=== PATIENT | female | born 1975 | race Caucasian/White ===

== ENCOUNTER 2019-02-12 10:58 | Observation (INO) | payer BC ==
--- NOTE | 2019-02-08 11:36 | Diagnostic Imaging Report ---
Chest, 2 views, 02/08/2019. History: Preop, hysterectomy. Comparison: None available. Findings: The cardiomediastinal silhouette and pulmonary vasculature are within normal limits. The lungs are clear without evidence of consolidation or pleural effusion. There are no acute osseous or soft tissue abnormalities. Impression: No acute cardiopulmonary abnormality. Signed by: John Felipe on 02/08/2019 11:33 AM
[2019-02-08 12:12] LABS: BASOPHILS % 0.5 % (0.0-1.0); EOSINOPHILS # (AUTO) 0.2 (0.0-0.4); EOSINOPHILS % 4.1 % (0.0-6.0); HEMATOCRIT 41.1 % (34.2-44.1); HEMOGLOBIN 13.3 g/dL (12.0-16.0); LYMPHOCYTES % 33.9 % (18.0-39.1); MEAN CORPUSCULAR HEMOGLOBIN 28.1 pg (28-32); MEAN CORPUSCULAR HGB CONC 32.4 g/dL (31-35); MEAN CORPUSCULAR VOLUME 86.9 fL (81-99); MONOCYTES # (AUTO) 0.6 (0.2-0.8); MONOCYTES % 10.5 % (4.4-11.3); NEUTROPHILS # (AUTO) 2.9 (2.1-6.9); NEUTROPHILS % 50.8 % (38.7-80.0); PLATELET COUNT 291 x10e3/uL (140-360); RED BLOOD COUNT 4.73 x10e6/uL (3.6-5.1); RED CELL DISTRIBUTION WIDTH 12.6 % (11.7-14.4)
[2019-02-08 12:27] LABS: ANION GAP 13.8 mmol/L (8-16); BLOOD UREA NITROGEN 8 mg/dL (7-26); BUN/CREATININE RATIO 11 (6-25); CALCIUM 9.1 mg/dL (8.4-10.2); CARBON DIOXIDE 25 mmol/L (22-29); CHLORIDE 102 mmol/L (98-107); CREATININE, SERUM 0.75 mg/dL (0.57-1.11); EST GLOMERULAR FILTRATION RATE > 60 ML/MIN (60-); GLUCOSE 86 mg/dL (74-118); POTASSIUM 3.8 mmol/L (3.5-5.1); SODIUM 137 mmol/L (136-145)
[2019-02-08 12:54] LABS: BILIRUBIN,URINE NEGATIVE (NEGATIVE); CLARITY,URINE SL CLOUDY (CLEAR); COLOR,URINE YELLOW (YELLOW); KETONES,URINE NEGATIVE (NEGATIVE); LEUKOCYTE ESTERASE ,URINE NEGATIVE (NEGATIVE); NITRITE,URINE NEGATIVE (NEGATIVE); PROTEIN,URINE DIPSTICK NEGATIVE (NEGATIVE); URINE UROBILINOGEN 0.2 mg/dL (0.2 - 1)
[~2019-02-12] VITALS: Ht 172.7 cm; Wt 78.0 kg
[~2019-02-12 10:58] MED LIST: MEDROXYPROGESTE10 MG PO
--- OUTSIDE RECORDS SUMMARY | 2019-02-12 11:01 | XMS REPORT ---
[facility] Address Unknown Phone Unavailable Care Team Providers Care Quality Control Industrial Engineer Name Role Phone KARIN DAILEY Unavailable Unavailable Problems This patient has no known problems. Allergies, Adverse Reactions, Alerts This patient has no known allergies or adverse reactions. Medications This patient has no known medications. Results Test Description Test Time Test Comments Text Results Atomic Results Result Comments CHEST 2 VIEWS 2019-02-08 11:33:00 [place] [address] Patient Name: ELEN VALIENTE MR #: [id number] : 1975 Age/Sex: 43/F Req #: [id number] Adm Physician: Ordered by: KARIN DAILEY MD Report #: [id number] Location: OR Room/Bed: Procedure: [id number] DX/CHEST 2 VIEWS Exam Date: Exam Time: REPORT STATUS: Signed Chest, 2 views, 02/08/2019. History: Preop, hysterectomy. Comparison: None available. Findings: The cardiomediastinal silhouette and pulmonary vasculature are within normal limits. The lungs are clear without evidence of consolidation or pleural effusion. There are no acute osseous or soft tissue abnormalities. Impression: No acute cardiopulmonary abnormality. Signed by: Evon Felipe on 02/08/2019 11:33 AM Dictated By: EVON FELIPE MD [id number] Transcribed By: ALEX on 02/08/19 1133 COPY TO: KARIN DAILEY MD
[2019-02-12] MEDS ORDERED: CEFAZOLIN SOD 1 GM/NS 50ML 100 ML IV ONE (12:09)
[2019-02-12] MEDS ORDERED: ATROPINE SULFATE 1 MG/ML VIAL ONE (12:48)
[2019-02-12] MEDS ORDERED: PROPOFOL IV EMULSION 10 MG/ML 20 ML VIAL ONE (12:48)
[2019-02-12] MEDS ORDERED: DEXAMETHASONE SOD PHOS INJ 4 MG/ML VIAL ONE (12:48)
[2019-02-12] MEDS ORDERED: ROCURONIUM BROMIDE 10 MG/ML 5ML VIAL ONE (12:48)
[2019-02-12] MEDS ORDERED: KETOROLAC TROMETHAMINE 30 MG/ML VIAL ONE (12:48)
[2019-02-12] MEDS ORDERED: SEVOFLURANE INHAL SOLN 250 ML PEN BTL ONE (12:48)
[2019-02-12] MEDS ORDERED: ONDANSETRON HCL INJ 2MG/ML 2ML 2 MG/ML VIAL ONE (12:48)
[2019-02-12] MEDS ORDERED: NEOSTIGMINE 5 MG/5ML SYR ONE (12:48)
[2019-02-12] MEDS ORDERED: GLYCOPYRROLATE INJ 1MG/ 5 ML SYR ONE (12:48)
[2019-02-12] MEDS ORDERED: LIDOCAINE HCL 2% LOCAL INJ 5 ML SDV VIAL INJ ONE (12:48)
[2019-02-12] MEDS ORDERED: MIDAZOLAM HCL 2 MG/2 ML VIAL ONE (13:09)
[2019-02-12] MEDS ORDERED: FENTANYL CITRATE/PF 100MCG/2 ML INJ ONE ×2 (13:09→16:04)
[2019-02-12] MEDS ORDERED: BUPIVACAINE 0.5%/EPI 30 ML SDV INJ ONE (14:06)
[2019-02-12] MEDS: D5.45%NS/KCL 20MEQ 1,000 ML IV SCH (16:02)
[2019-02-12] MEDS ORDERED: MORPHINE SULFATE INJ 4 MG/ML INJ 1ML IM PRN (16:15)
[2019-02-12] MEDS ORDERED: DOCUSATE SODIUM 100 MG CAP PO PRN (16:15)
[2019-02-12] MEDS ORDERED: SIMETHICONE 80 MG CHEW PO PRN (16:15)
[2019-02-12] MEDS ORDERED: BISACODYL 10 MG SUPP PR PRN (16:15)
[2019-02-12] MEDS ORDERED: DIPHENHYDRAMINE HCL 25 MG CAP PO PRN (16:15)
[2019-02-12] MEDS ORDERED: ACETAMINOPHEN 325 MG TAB PO PRN (16:15)
[2019-02-12] MEDS ORDERED: ONDANSETRON HCL INJ 2MG/ML 2ML 2 MG/ML VIAL IV PRN (16:15)
[2019-02-12] MEDS ORDERED: MORPHINE SULFATE 2 MG/ML SYR 1ML ONE (16:34)
[2019-02-12] MEDS ORDERED: MEPERIDINE HCL INJ 25 MG/ML VIAL ONE (16:37)
[2019-02-12 17:27] VITALS: BP 153/90
[2019-02-12 18:03] VITALS: BP 153/90
[2019-02-12 18:21] VITALS: BP 153/90
[2019-02-12] MEDS: KETOROLAC TROMETHAMINE 30 MG/ML VIAL IV SCH (18:53)
[2019-02-12 20:00] VITALS: BP 142/79
--- NOTE | 2019-02-12 20:58 | Operative Report ---
DATE OF PROCEDURE: 02/12/2019 SURGEON: Franklyn Garrett MD PREOPERATIVE DIAGNOSIS: Abnormal uterine bleeding, unrelieved by medical therapy. POSTOPERATIVE DIAGNOSES: 1. Abnormal uterine bleeding, unrelieved by medical therapy. 2. Adhesions and fibroid uterus. TITLE OF PROCEDURE: Total laparoscopic hysterectomy, lysis of adhesions. CO-SURGEON AND ASSITANT: Dr. Jeffery Caruso. ANESTHESIA: General with Dr. Staples and Essie, medical claims assistant. INDICATIONS FOR OPERATION: The patient is a 43-year-old, 4, para 2-0-2-2, last menstrual period January 19, 2019, using withdrawal for contraception, who presents with history of abnormal uterine bleeding. Endometrial biopsy showed disordered proliferative endometrium. Hormone therapy has failed to stop the bleeding. The patient desires total laparoscopic hysterectomy for therapy. Alternative therapies were offered including hysteroscopic myomectomy, hysteroscopic endometrial ablation, and other forms of medical therapy. She has declined these and desires total laparoscopic hysterectomy. She also declines bilateral salpingo-oophorectomy. She was instructed that removing the tubes would reduce her risk for ovarian cancer while leaving the ovaries in, however, she is worried that removing the tubes would decrease her hormone production, she therefore declines bilateral salpingectomy and declines bilateral salpingo-oophorectomy. She is therefore taken to the operating room at this time for total laparoscopic hysterectomy. Incidentally, she has had three previous laparoscopies for endometriosis years ago. FINDINGS OF SURGERY: There was an 8-week size mobile uterus. Normal tubes and ovaries. There were adhesions of omentum to the left side of the uterus and adhesions of the cul-de-sac to the left lower uterus and also adhesions of the cul-de-sac to the right uterosacral ligament. All these adhesions were lysed and then laparoscopic hysterectomy was successfully done. DESCRIPTION OF PROCEDURE: The patient was taken to the operating room and placed on the table in the supine position. General anesthesia was administered. The patient was placed in the lithotomy position. The perineum was prepared and draped in the usual sterile manner as was the abdomen. Guerra catheter was placed in the bladder for constant drainage. Pelvic exam revealed an 8-week size anteverted, anteflexed, mobile uterus with no adnexal masses. A weighted speculum was placed in the posterior vaginal wall with the aid of a tenaculum grasping the anterior portion of the cervix. The VCare was placed over the cervix. This was a large size VCare. The balloon was inflated to keep the manipulator in place and this was draped. Then, the bindery machine operator changed gloves and the legs were placed down from lithotomy and at this point, a pneumoperitoneum was created by insufflation of 4 liters of carbon dioxide gas and a filling pressure of 8 to 10 mmHg and this insufflation was done after a small incision was made just inferior to the umbilicus in the midline. The Veress needle was then removed and a trocar was inserted through the incision into the peritoneal cavity. The laparoscope was placed with confirmation that the peritoneal cavity had been entered. A second trocar was placed in the right lower quadrant under direct visualization by laparoscopy that being a 5 mm trocar and then a 10/11 trocar was placed in the left lower quadrant and this was a blunt trocar also done under direct visualization by laparoscopy. At this point, we proceeded to examine the peritoneal cavity. There was finding of an 8-week size anteverted, anteflexed uterus. There was a fibroid noted in the lower uterine segment anteriorly. There were adhesions noted of omentum to the left side of the uterus from the cul-de-sac to the left lower uterus and from the cul-de-sac to the right uterosacral ligament. LigaSure was placed and these adhesions were all lysed first clamping, coagulating, and then cutting. There was good hemostasis in evidence. We then proceeded to perform the hysterectomy. The mesosalpinx was grasped on each side from the uterus to the tube, clamping near the uterus. The LigaSure instrument was fired on each side, clamping, firing, and then cutting, and the tube and ovary were cut away from the uterus on each side with good hemostasis in evidence. At this point, the broad ligament on each side was clamped, coagulated with the LigaSure instrument and cut and then the round ligament on each side was clamped, coagulated, and cut and at this point, we were able to visualize anterior peritoneum and we developed a window and was able to slowly dissect coagulating and cutting the anterior peritoneum from round ligament to round ligament. Then, the bladder was brought down by blunt dissection and then the uterine vessels on each side were visualized and identified. They were clamped, coagulated in multiple places close to the uterus and then cut at the place it was coagulated closest to the uterus and then we were able to observe good hemostasis of the uterine vessels. There were a few small areas of bleeding, which were grasped with the LigaSure instrument, coagulated and then cut. At this point anteriorly, the bladder flap was brought down by pushing the VCare up and we were able to visualize the vaginal cuff where the VCare cup was seen and at this point, we made sure that all the vessels had been coagulated and then using the L hook, we circumscribed the uterus, cutting the uterosacral ligaments and laterally freeing the uterus from its attachments all the while staying within the green cup. The bladder and the uterine attachments gradually were cut away. At this point, the uterus was then freed up. There were a few small bleeders, which were then coagulated using the LigaSure instrument and any other areas were coagulated with the L hook. At this point, we then removed the uterus through the vagina and sent it to pathology for definitive diagnosis. A donut was placed in the vagina to occlude the pneumoperitoneum and to maintain it and then we proceeded to close the vaginal cuff using a laparoscopic suture device, five stitches were placed on the vaginal cuff closing, tying three knots on each suture and cutting the stitches and with the suturing from posterior to anterior vagina through the vaginal cuff, good hemostasis was obtained. At this point, we irrigated and suctioned using the laparoscopic suction trucking contractor and found no evidence of any bleeding. We irrigated and suctioned and again no bleeding was noted and then Dr. Caruso injected fluid into the bladder after removing the Guerra and we observed the expanded bladder laparoscopically, finding no evidence of any leaks and then an IV bolus had been given by anesthesia and we performed cystoscopy, observed ureteral jets bilaterally showing patency of the ureters. There was no evidence of any injury to any other part of the bladder. No bleeding noted. The urine was clear. At this point, the procedure was deemed terminated. All the instruments were removed from the vagina. A new Guerra catheter was placed in the bladder for constant drainage and then Dr. Caruso done the cystoscopy. I removed the air and instruments from the abdomen. Skin incisions were closed with inverted interrupted sutures of 4-0 Monocryl thus completing the procedure. There were no complications noted. Estimated blood loss was 100 mL. The patient tolerated the procedure well, was transferred from the operating room to the recovery room in stable condition. MD MARISELA Simon/PRETTY /[id number]
[2019-02-12] MEDS: CEFAZOLIN SOD 1 GM/NS 50ML 100 ML IV SCH (21:39)
[2019-02-12] MEDS ORDERED: SODIUM CHLORIDE 0.9% 250ML 250 ML ONE (21:50)
[2019-02-12] MEDS ORDERED: CEFAZOLIN SOD 1 GM VIAL IV SCH (22:00)
[2019-02-13] VITALS: BP 130/80
[2019-02-13] MEDS: D5.45%NS/KCL 20MEQ 1,000 ML IV SCH
[2019-02-13] MEDS: KETOROLAC TROMETHAMINE 30 MG/ML VIAL IV SCH ×2 (03:47→05:18)
[2019-02-13 04:00] VITALS: BP 116/76
[2019-02-13] MEDS: CEFAZOLIN SOD 1 GM/NS 50ML 100 ML IV SCH (05:13)
[2019-02-13 05:48] LABS: BASOPHILS % 0.1 % (0.0-1.0); EOSINOPHILS % 0.1 % (0.0-6.0); HEMATOCRIT 34.4 % (34.2-44.1); HEMOGLOBIN 11.1 g/dL (12.0-16.0); LYMPHOCYTES # (AUTO) 1.4 (1.0-3.2); LYMPHOCYTES % 15.4 % (18.0-39.1); MEAN CORPUSCULAR HEMOGLOBIN 28.2 pg (28-32); MEAN CORPUSCULAR HGB CONC 32.3 g/dL (31-35); MEAN CORPUSCULAR VOLUME 87.3 fL (81-99); MONOCYTES # (AUTO) 0.8 (0.2-0.8); MONOCYTES % 8.7 % (4.4-11.3); NEUTROPHILS # (AUTO) 6.8 (2.1-6.9); NEUTROPHILS % 75.4 % (38.7-80.0); PLATELET COUNT 204 x10e3/uL (140-360); RED BLOOD COUNT 3.94 x10e6/uL (3.6-5.1); RED CELL DISTRIBUTION WIDTH 12.7 % (11.7-14.4)
[2019-02-13 05:59] LABS: ANION GAP 13.1 mmol/L (8-16); BLOOD UREA NITROGEN 7 mg/dL (7-26); BUN/CREATININE RATIO 9 (6-25); CALCIUM 8.3 mg/dL (8.4-10.2); CARBON DIOXIDE 21 mmol/L (22-29); CHLORIDE 103 mmol/L (98-107); CREATININE, SERUM 0.75 mg/dL (0.57-1.11); EST GLOMERULAR FILTRATION RATE > 60 ML/MIN (60-); GLUCOSE 152 mg/dL (74-118); POTASSIUM 4.1 mmol/L (3.5-5.1); SODIUM 133 mmol/L (136-145)
[2019-02-13] MEDS ORDERED: MOTRIN200 MG PO (06:36)
[2019-02-13] MEDS ORDERED: TYLENOL WITH C1 EACH PO (06:36)
--- NOTE | 2019-02-13 07:21 | NUR ---
PT GIVEN DISCHARGE INSTRUCTIONS. IV REMOVED WITHOUT COMPLICATIONS. PT IS AT BEDSIDE. PT INSTRUCTED TO USE CALL LIGHT WHEN READY FOR WHEELCHAIR TO GO HOME. PT GIVEN WRITTEN PRESCRIPTIONS, COPY IS IN CHART. PT HAS NO FURTHER QUESTIONS.
== END 2019-02-13 07:40 | disposition home or self-care (01) ==
LOC: OR 10:58 → PACU V 16:11 → IMCU 17:23
PROVIDERS: ADMIT Obstetrics & Gynecology; ATTEND Obstetrics & Gynecology
DX: D25.1 Intramural leiomyoma of uterus (principal); D25.2 Subserosal leiomyoma of uterus; N73.6 Female pelvic peritoneal adhesions (postinfective); N72 Inflammatory disease of cervix uteri; Z01.812 Encounter for preprocedural laboratory examination; Z01.811 Encounter for preprocedural respiratory examination
CPT/HCPCS: 36415 ×2; 58570; 71046; 80048 ×2; 81003; 84702; 85025 ×2; 86850; 86900; 88307; G0378 ×2; J0461; J0690; J1100; J1885 ×2; J2001; J2175; J2250; J2270; J2405; J2704; J3010; J3490; J7050